=== PATIENT | male | born 1995 | race Caucasian/White ===

== ENCOUNTER 2018-07-09 11:17 | Emergency (ER) | payer MEDICARE ==
[2018-07-09 11:24] VITALS: BP 128/77
--- NOTE | 2018-07-09 11:33 | ER Document Report ---
ED Medical Screen (RME) - General Chief Complaint: Abdominal Pain Stated Complaint: ABDOMINAL PAIN Time Seen by Provider: 07/09/18 11:31 Mode of Arrival: Ambulatory Information source: Patient TRAVEL OUTSIDE OF THE [place] IN LAST 30 DAYS: No - HPI Patient complains to provider of: abd pain Onset: Yesterday - pt. is hearing impaired -- has haad epigastric pain for the past day with exacerbation this am - Related Data Allergies/Adverse Reactions: No Known Allergies Allergy (Verified 07/09/18 11:29) Past Medical History - Social History Chew tobacco use (# tins/day): No Frequency of alcohol use: None Drug Abuse: Marijuana Renal/ Medical History: Denies: Hx Peritoneal Dialysis Physical Exam - Vital signs Vitals: Temp Pulse Resp BP Pulse Ox 98.7 F 78 18 128/77 H 100 07/09/18 11:21 07/09/18 11:21 07/09/18 11:21 07/09/18 11:21 07/09/18 11:21 Course - Vital Signs Vital signs: Temp Pulse Resp BP Pulse Ox 98.7 F 78 18 128/77 H 100 07/09/18 11:21 07/09/18 11:21 07/09/18 11:21 07/09/18 11:21 07/09/18 11:21
[2018-07-09 11:59] LABS: ABSOLUTE LYMPHOCYTES (AUTO) 1.8 10^3/uL (0.5-4.7); ABSOLUTE MONOCYTES (AUTO) 0.6 10^3/uL (0.1-1.4); BASOPHILS % (AUTO) 0.5 % (0-2); EOSINOPHILS % (AUTO) 0.4 % (0-6); HEMATOCRIT 45.2 % (37.9-51.0); HEMOGLOBIN 15.4 g/dL (13.5-17.0); LYMPHOCYTES % (AUTO) 20.9 % (13-45); MEAN CORPUSCULAR HEMOGLOBIN 29.3 pg (27.0-33.4); MEAN CORPUSCULAR HGB CONC 34.1 g/dL (32.0-36.0); MEAN CORPUSCULAR VOLUME 86 fl (80-97); MONOCYTES % (AUTO) 7.5 % (3-13); PLATELET COUNT 226 10^3/uL (150-450); RED BLOOD COUNT 5.27 10^6/uL (4.35-5.55); RED CELL DISTRIBUTION WIDTH 14.1 % (11.5-14.0); SEGMENTED NEUTROPHILS % (AUTO) 70.7 % (42-78); TOTAL CELLS COUNTED % (AUTO) 100 %; WHITE BLOOD COUNT 8.4 10^3/uL (4.0-10.5)
--- NOTE | 2018-07-09 12:10 | RADIOLOGY REPORT (SQ) ---
EXAM DESCRIPTION: ACUTE ABDOMEN SERIES COMPLETED DATE/TIME: 07/09/2018 12:02 pm REASON FOR STUDY: abd pain COMPARISON: None. NUMBER OF VIEWS: Three views. TECHNIQUE: Frontal chest, supine abdomen and upright/decubitus abdomen radiographic images acquired. LIMITATIONS: None. FINDINGS: CHEST: Lungs clear of infiltrates. FREE AIR: None. No abnormal gas collections. BOWEL GAS PATTERN: Nonobstructive pattern. No dilated loops or air fluid levels. CALCIFICATIONS: No suspicious calcifications. HARDWARE: None in the abdomen. SOFT TISSUES: No gross mass or suggestion of organomegaly. BONES: No acute fracture. No worrisome bone lesions. OTHER: No other significant finding. IMPRESSION: NO RADIOGRAPHIC EVIDENCE FOR ACUTE ABDOMINAL DISEASE. TECHNICAL DOCUMENTATION: JOB ID: [id number] [employer]- All Rights Reserved Reading location - IP/workstation name: [email or web address]
[2018-07-09 12:25] LABS: ALANINE AMINOTRANSFERASE 24 U/L (21-72); ALBUMIN 4.9 g/dL (3.5-5.0); ALKALINE PHOSPHATASE 56 U/L (38-126); ANION GAP 16 (5-19); ASPARTATE AMINO TRANSFERASE 23 U/L (17-59); BILIRUBIN,DIRECT 0.3 mg/dL (0.0-0.4); BILIRUBIN,TOTAL 1.7 mg/dL (0.2-1.3); BLOOD UREA NITROGEN 15 mg/dL (7-20); CALCIUM 9.7 mg/dL (8.4-10.2); CARBON DIOXIDE 23 mmol/L (22-30); CHLORIDE 106 mmol/L (98-107); GLUCOSE 93 mg/dL (75-110); LIPASE 55.9 U/L (23-300); POTASSIUM 4.5 mmol/L (3.6-5.0); TOTAL PROTEIN 7.6 g/dL (6.3-8.2)
[2018-07-09] MEDS ORDERED: FENTANYL CITRATE INJ/PF 100 MCG/2 ML AMPUL IV ONE (12:39)
[2018-07-09] MEDS ORDERED: NORMAL SALINE 1000 ML 1,000 ML IV ONE (12:39)
[2018-07-09] MEDS ORDERED: ONDANSETRON HCL INJ/PF 4 MG/2 ML SDV IV ONE (12:39)
--- NOTE | 2018-07-09 12:41 | ER Document Report ---
ED GI/ - General Chief Complaint: Abdominal Pain Stated Complaint: ABDOMINAL PAIN Time Seen by Provider: 07/09/18 11:31 Mode of Arrival: Ambulatory Information source: Patient Notes: Patient presents with a 2 day history of epigastric abdominal pain has been off and on. Patient does report nausea but denies any vomiting or diarrhea. Patient denies any fever. Appetite has been normal. Patient states that pain symptoms occasionally will wake him out in a sweat. TRAVEL OUTSIDE OF THE [place] IN LAST 30 DAYS: No - HPI Patient complains to provider of: Abdominal pain Onset: Other - 2 days Timing/Duration: Waxing and waning Quality of pain: Sharp Pain Level: 5 Location: Epigastric Associated symptoms: Nausea. denies: Chest pain, Constipation, Diarrhea, Loss of appetite, Urinary hesitancy, Urinary frequency, Urinary retention, Vomiting Exacerbated by: Denies Relieved by: Denies Similar symptoms previously: No Recently seen / treated by doctor: No - Related Data Allergies/Adverse Reactions: No Known Allergies Allergy (Verified 07/09/18 11:29) Past Medical History - General Information source: Patient - Social History Smoking Status: Former Smoker Chew tobacco use (# tins/day): No Frequency of alcohol use: None Drug Abuse: Marijuana Occupation: Foodservice Family History: Reviewed & Not Pertinent Patient has suicidal ideation: No Patient has homicidal ideation: No - Medical History Medical History: Negative Renal/ Medical History: Denies: Hx Peritoneal Dialysis Past Surgical History: Reports: Other - Ear surgery Review of Systems - Review of Systems Constitutional: No symptoms reported. denies: Fever, Recent illness EENT: No symptoms reported Cardiovascular: No symptoms reported. denies: Chest pain Respiratory: No symptoms reported. denies: Cough, Short of breath Gastrointestinal: Abdominal pain, Nausea. denies: Diarrhea, Vomiting, Constipation, Poor appetite Genitourinary: No symptoms reported. denies: Dysuria, Flank pain Male Genitourinary: No symptoms reported Musculoskeletal: No symptoms reported. denies: Back pain Skin: No symptoms reported Hematologic/Lymphatic: No symptoms reported Neurological/Psychological: No symptoms reported Physical Exam - Vital signs Vitals: Temp Pulse Resp BP Pulse Ox 98.7 F 78 18 128/77 H 100 07/09/18 11:21 07/09/18 11:21 07/09/18 11:21 07/09/18 11:21 07/09/18 11:21 - General General appearance: Appears well, Alert In distress: None - HEENT Head: Normocephalic Eyes: Normal Conjunctiva: Normal Ears: Normal Nasal: Normal Mouth/Lips: Normal Mucous membranes: Normal Neck: Normal, Supple. No: Lymphadenopathy - Respiratory Respiratory status: No respiratory distress Chest status: Nontender Breath sounds: Normal. No: Rales, Rhonchi, Stridor, Wheezing Chest palpation: Normal - Cardiovascular Rhythm: Regular Heart sounds: S1 appreciated, S2 appreciated - Abdominal Inspection: Normal Distension: No distension Bowel sounds: Normal Tenderness: Tender - epig, suprapubic Organomegaly: No organomegaly - Back Back: Normal, Nontender. No: CVA tenderness - Extremities General upper extremity: Normal inspection, Normal ROM General lower extremity: Normal inspection, Normal ROM - Neurological Neuro grossly intact: Yes Cognition: Normal [place] Coma Scale Eye Opening: Spontaneous Fabrice Coma Scale Verbal: Oriented Fabrice Coma Scale Motor: Obeys Commands Fabrice Coma Scale Total: 15 - Psychological Associated symptoms: Normal affect, Normal mood - Skin Skin Temperature: Warm Skin Moisture: Dry Skin Color: Normal Course - Re-evaluation Re-evalutation: 07/09/18 14:43 Patient resting with eyes closed. Patient states that he has persistent abdominal pain 4 out of 5 scale at this time. Additional imaging ordered. 07/09/18 16:40 Patient vomiting, additional medications ordered. 07/09/18 18:38 Patient sleeping, arouses easily to voice. Discussed results of patient's diagnostic test with patient. Patient advised of finding of enlarged spleen on CT scan. Patient advised of worsening symptoms that he should return medially for. Patient encouraged to avoid any type of contact sports or activities that may risk getting struck on that side. Patient encouraged to follow-up with a GI doctor for further evaluation of upper abdominal tenderness. Patient without any tenderness to left upper quadrant or left flank area. Consulted with Dr. Espinoza regarding patient's diagnostic evaluation. No additional testing advised at this time. - Vital Signs Vital signs: Temp Pulse Resp BP Pulse Ox 98.7 F 78 18 128/77 H 100 07/09/18 11:21 07/09/18 11:21 07/09/18 11:21 07/09/18 11:21 07/09/18 11:21 - Laboratory Result Diagrams: 07/09/18 11:44 07/09/18 11:44 Laboratory results interpreted by me: 07/09/18 07/09/18 07/09/18 11:44 11:44 16:06 RDW 14.1 H Total Bilirubin 1.7 H Urine Urobilinogen 2.0 H 07/09/18 18:39 Labs- Entire Visit 07/09/18 07/09/18 07/09/18 11:44 11:44 16:06 WBC 8.4 RBC 5.27 Hgb 15.4 Hct 45.2 MCV 86 MCH 29.3 MCHC 34.1 RDW 14.1 H Plt Count 226 Seg Neutrophils % 70.7 Lymphocytes % 20.9 Monocytes % 7.5 Eosinophils % 0.4 Basophils % 0.5 Absolute Neutrophils 6.0 Absolute Lymphocytes 1.8 Absolute Monocytes 0.6 Absolute Eosinophils 0.0 Absolute Basophils 0.0 Sodium 145.0 Potassium 4.5 Chloride 106 Carbon Dioxide 23 Anion Gap 16 BUN 15 Creatinine 0.72 Est GFR ( Amer) > 60 Est GFR (Non-Af Amer) > 60 Glucose 93 Calcium 9.7 Total Bilirubin 1.7 H Direct Bilirubin 0.3 Neonat Total Bilirubin Not Reportable Neonat Direct Bilirubin Not Reportable Neonat Indirect Bili Not Reportable AST 23 ALT 24 Alkaline Phosphatase 56 Total Protein 7.6 Albumin 4.9 Lipase 55.9 Urine Color YELLOW Urine Appearance CLEAR Urine pH 6.0 Ur Specific [place] 1.021 Urine Protein NEGATIVE Urine Glucose (UA) NEGATIVE Urine Ketones NEGATIVE Urine Blood NEGATIVE Urine Nitrite NEGATIVE Urine Bilirubin NEGATIVE Urine Urobilinogen 2.0 H Ur Leukocyte Esterase NEGATIVE Urine WBC (Auto) 0 Urine RBC (Auto) 1 Urine Mucus (Auto) RARE Urine Ascorbic Acid NEGATIVE - Diagnostic Test Radiology reviewed: Image reviewed, Reports reviewed Discharge - Discharge Clinical Impression: Enlargement, spleen Abdominal pain Qualifiers: Abdominal location: epigastric Qualified Code(s): R10.13 - Epigastric pain Condition: Stable Disposition: HOME, SELF-CARE Instructions: Abdominal Pain ([facility]), Antinausea Medication ([facility]) Additional Instructions: Return immediately for any new or worsening symptoms Followup with your primary care provider, call tomorrow to make a followup appointment Your CT scan showed that your spleen is enlarged. It is important that you avoid any contact sports or activities that may risk any type of trauma or blow to your left side, left upper quadrant of your abdomen, or left side of your back. If you start to have any pain in this area, feeling lightheaded, dizzy or have any worsening symptoms it is important that you return immediately or call 911 if symptoms are severe. Follow-up with a plywood stock grader for further evaluation of your upper abdominal tenderness. It is possible that he may need an endoscopy procedure to further evaluate your upper abdominal tenderness symptoms. Eat a bland diet and avoid spicy foods or citrus that may be irritating to her stomach. Prescriptions: Omeprazole Magnesium [Prilosec Otc] 20 mg PO DAILY #15 tablet. Ondansetron HCl [Zofran 4 mg Tablet] 1 - 2 tab PO Q6 PRN #15 tablet PRN Reason: Sucralfate [Carafate 1 gm Tablet] 1 gm PO ACHS #40 tablet Forms: Return to Work Referrals: LETICIA VILLALBA [Primary Care Provider] - Follow up as needed KATIE LIEBERMAN MD [ACTIVE STAFF] - Follow up as needed RICKY AKBAR MD [ACTIVE STAFF] - Follow up as needed [facility] [Provider Group] - Follow up as needed
--- NOTE | 2018-07-09 13:41 | RADIOLOGY REPORT (SQ) ---
EXAM DESCRIPTION: U/S ABDOMEN LIMITED W/O DOP COMPLETED DATE/TIME: 07/09/2018 1:28 pm REASON FOR STUDY: abd pain COMPARISON: None. TECHNIQUE: Dynamic and static grayscale images acquired of the abdomen and recorded on PACS. Additio nal selected color Doppler and spectral images recorded. LIMITATIONS: None. FINDINGS: PANCREAS: No masses. Visualized pancreatic duct normal caliber. LIVER: No masses. Echotexture normal. LIVER VASCULATURE: Normal directional flow of the main portal vein and hepatic veins. GALLBLADDER: No stones. Normal wall thickness. No pericholecystic fluid. ULTRASOUND-DETECTED TURNER'S SIGN: Negative. INTRAHEPATIC DUCTS AND COMMON DUCT: CBD and intrahepatic ducts normal caliber. No filling defects. INFERIOR VENA CAVA: Normal flow. AORTA: No aneurysm. RIGHT KIDNEY: Normal size. Normal echogenicity. No solid or suspicious masses. No hydronephrosis. No calcifications. PERITONEAL AND RIGHT PLEURAL SPACE: No ascites or effusions. OTHER: No other significant findings. IMPRESSION: NORMAL RIGHT UPPER QUADRANT ULTRASOUND. TECHNICAL DOCUMENTATION: JOB ID: [id number] [employer]- All Rights Reserved Reading location - IP/workstation name: [email or web address]
[2018-07-09] MEDS ORDERED: NORMAL SALINE 1000 ML 1,000 ML IV PRN (14:43)
[2018-07-09] MEDS ORDERED: MORPHINE SULFATE 10 MG/ML INJ IV ONE (16:14)
[2018-07-09] MEDS ORDERED: PROCHLORPERAZINE EDISYLATE INJ 10 MG/2 ML VIAL IV ONE (16:40)
[2018-07-09 17:02] LABS: APPEARANCE,URINE CLEAR; BILIRUBIN,URINE NEGATIVE (NEGATIVE); COLOR,URINE YELLOW; GLUCOSE, URINE NEGATIVE (NEGATIVE); KETONES,URINE NEGATIVE (NEGATIVE); LEUKOCYTE ESTERASE,URINE NEGATIVE (NEGATIVE); NITRITE,URINE NEGATIVE (NEGATIVE); PROTEIN,URINE NEGATIVE (NEGATIVE); URINE SPECIFIC GRAVITY 1.021
--- NOTE | 2018-07-09 18:02 | RADIOLOGY REPORT (SQ) ---
EXAM DESCRIPTION: CT ABD/PELVIS WITH IV ORAL COMPLETED DATE/TIME: 07/09/2018 5:39 pm REASON FOR STUDY: epig, periumbilical, suprapubic pain COMPARISON: Right upper quadrant ultrasound 07/09/2018, abdominal series 07/09/2018. TECHNIQUE: CT scan of the abdomen and pelvis performed using helical scanning technique with dynamic intravenous contrast injection and with oral contrast. Images reviewed with lung, soft tissue, and b one windows. Reconstructed coronal and sagittal MPR images reviewed. Delayed images for evaluation of the urinary system also acquired. All images stored on PACS. All CT scanners at this facility use dose modulation, iterative reconstruction, and/or weight based d osing when appropriate to reduce radiation dose to as low as reasonably achievable (ALARA). [facility]: Dose Right [facility]: CareDose [facility]: Dose Right [facility]: Teradose 4D [facility]: [employer] CONTRAST TYPE AND DOSE: contrast/concentration: Isovue 350.00 mg/ml; Total Contrast Delivered: 83.0 ml; Total Saline Delivered: 69.0 ml RENAL FUNCTION: None required. The patient is less than 50 years old. RADIATION DOSE: CT Rad equipment meets quality standard of care and radiation dose reduction techniq ues were employed. CTDIvol: 5.7 - 7.0 mGy. DLP: 727 mGy-cm.. LIMITATIONS: None. FINDINGS: LOWER CHEST: No consolidation or pleural effusion. LIVER: Normal size. No masses. No dilated ducts. SPLEEN: Mildly enlarged measuring 13.7 cm in craniocaudal dimension. PANCREAS: No significant calcifications. No adjacent inflammation or peripancreatic fluid collections . Pancreatic duct not dilated. GALLBLADDER: No identified stones by CT criteria. No inflammatory changes to suggest cholecystitis. ADRENAL GLANDS: No significant masses or asymmetry. 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 No solid masses. No signi ficant calcifications. No hydronephrosis or hydroureter. LEFT KIDNEY AND URETER: No solid masses. No significant calcifications. No hydronephrosis or hydr oureter. AORTA AND VESSELS: No abdominal aortic aneurysm. RETROPERITONEUM: No retroperitoneal adenopathy, hemorrhage or masses. BOWEL AND PERITONEAL CAVITY: No dilated bowel loops or inflammatory changes. No free fluid or free ai r. The oral contrast has reached the ascending colon. APPENDIX: Normal. PELVIS: No mass. No free fluid. Normal bladder. ABDOMINAL WALL: No hernias. BONES: No acute findings. IMPRESSION: Mild splenomegaly. Otherwise, no acute findings. TECHNICAL DOCUMENTATION: JOB ID: [id number] [place]- Quality ID # [id number]: Final reports with documentation of one or more dose reduction techniques (e.g., Au tomated exposure control, adjustment of the mA and/or kV according to patient size, use of iterative reconstruction technique) 2010 [employer]- All Rights Reserved Reading location - IP/workstation name: [email or web address]
== END 2018-07-09 19:05 | disposition home or self-care (01) ==
LOC: ER 11:17
DX: R16.1 Splenomegaly, not elsewhere classified (principal); R10.13 Epigastric pain; R11.0 Nausea; F12.10 Cannabis abuse, uncomplicated; Z87.891 Personal history of nicotine dependence
CPT/HCPCS: 99284; 96361; 96374; 96375; 36415; 83690; 85025; 80053; 81001; 74022; 76705; 74177; J3010; J2270; J0780; J2405; J7030

== ENCOUNTER 2018-11-29 17:03 | Emergency (ER) | payer MEDICARE ==
[2018-11-29] MEDS ORDERED: ONDANSETRON 4 MG TAB.RAPDIS PO ONE (18:56)
--- NOTE | 2018-11-29 19:06 | ER Document Report ---
ED Medical Screen (RME) - General Chief Complaint: Nausea/Vomiting Stated Complaint: VOMITING Time Seen by Provider: 11/29/18 18:55 Notes: Patient is deaf but reads lips. He is complaining of pain in the epigastric region of the his abdomen for 5 days. The pain is mostly constant. It is worsened by eating and he cannot keep anything down when he does eat. Has had diarrhea as well. Feeling dizzy. No fever. Has not had any abdominal manzano rgeries. TRAVEL OUTSIDE OF THE [place] IN LAST 30 DAYS: No - Related Data Allergies/Adverse Reactions: No Known Allergies Allergy (Verified 07/09/18 11:29) Past Medical History Renal/ Medical History: Denies: Hx Peritoneal Dialysis Past Surgical History: Reports: Other - Ear surgery Physical Exam - Vital signs Vitals: Temp Pulse Resp BP Pulse Ox 99.0 F 69 16 119/71 100 11/29/18 17:10 11/29/18 17:10 11/29/18 17:10 11/29/18 17:10 11/29/18 17:10 Course - Vital Signs Vital signs: Temp Pulse Resp BP Pulse Ox 99.0 F 69 16 119/71 100 11/29/18 17:10 11/29/18 17:10 11/29/18 17:10 11/29/18 17:10 11/29/18 17:10 Doctor's Discharge - Discharge Referrals: LETICIA VILLALBA [Primary Care Provider] - Follow up as needed
[2018-11-29 19:36] LABS: ABSOLUTE BASOPHILS # (AUTO) 0.1 10^3/uL (0.0-0.2); ABSOLUTE EOSINOPHILS # (AUTO) 0.1 10^3/uL (0.0-0.6); ABSOLUTE LYMPHOCYTES (AUTO) 2.7 10^3/uL (0.5-4.7); ABSOLUTE MONOCYTES (AUTO) 0.8 10^3/uL (0.1-1.4); ABSOLUTE NEUT (AUTO) 5.3 10^3/uL (1.7-8.2); BASOPHILS % (AUTO) 0.6 % (0-2); EOSINOPHILS % (AUTO) 0.7 % (0-6); HEMATOCRIT 43.2 % (37.9-51.0); HEMOGLOBIN 14.7 g/dL (13.5-17.0); LYMPHOCYTES % (AUTO) 30.2 % (13-45); MEAN CORPUSCULAR HEMOGLOBIN 29.3 pg (27.0-33.4); MEAN CORPUSCULAR VOLUME 86 fl (80-97); MONOCYTES % (AUTO) 8.6 % (3-13); PLATELET COUNT 206 10^3/uL (150-450); RED BLOOD COUNT 5.02 10^6/uL (4.35-5.55); RED CELL DISTRIBUTION WIDTH 13.7 % (11.5-14.0); SEGMENTED NEUTROPHILS % (AUTO) 59.9 % (42-78); TOTAL CELLS COUNTED % (AUTO) 100 %; WHITE BLOOD COUNT 8.9 10^3/uL (4.0-10.5)
[2018-11-29 19:51] LABS: AMORPHOUS SEDIMENT,URINE TRACE /HPF; APPEARANCE,URINE CLOUDY; BILIRUBIN,URINE NEGATIVE (NEGATIVE); COLOR,URINE YELLOW; GLUCOSE, URINE NEGATIVE (NEGATIVE); KETONES,URINE NEGATIVE (NEGATIVE); LEUKOCYTE ESTERASE,URINE NEGATIVE (NEGATIVE); NITRITE,URINE NEGATIVE (NEGATIVE); PROTEIN,URINE NEGATIVE (NEGATIVE); URINE SPECIFIC GRAVITY 1.019
[2018-11-29 20:05] LABS: ALANINE AMINOTRANSFERASE 22 U/L (21-72); ALBUMIN 4.6 g/dL (3.5-5.0); ALKALINE PHOSPHATASE 59 U/L (38-126); ANION GAP 8 (5-19); ASPARTATE AMINO TRANSFERASE 28 U/L (17-59); BILIRUBIN,DIRECT 0.2 mg/dL (0.0-0.4); BILIRUBIN,TOTAL 2.4 mg/dL (0.2-1.3); BLOOD UREA NITROGEN 15 mg/dL (7-20); CALCIUM 9.5 mg/dL (8.4-10.2); CARBON DIOXIDE 27 mmol/L (22-30); CHLORIDE 107 mmol/L (98-107); GLUCOSE 88 mg/dL (75-110); LIPASE 90.8 U/L (23-300); POTASSIUM 3.7 mmol/L (3.6-5.0); SODIUM 142.2 mmol/L (137-145); TOTAL PROTEIN 7.1 g/dL (6.3-8.2)
[2018-11-29] MEDS ORDERED: DIPHENHYDRAMINE HCL 50 MG/ML VIAL IV ONE (20:42)
[2018-11-29] MEDS ORDERED: METOCLOPRAMIDE HCL INJ/PF 10 MG/2 ML SDV IV ONE (20:42)
[2018-11-29] MEDS: NORMAL SALINE 1000 ML 1,000 ML IV PRN ×2 (21:33→23:47)
--- NOTE | 2018-11-30 00:04 | RADIOLOGY REPORT (SQ) ---
EXAM DESCRIPTION: CT ABDOMEN PELVIS WITH IV CONTRAST COMPLETED DATE/TME: 11/29/2018 00:00 CLINICAL HISTORY: 23 years Male, abd pain Comparison:07/09/2018 Technique: IV and oral contrast. Coronal and sagittal reformat. This exam was performed according to our departmental dose-optimization program, which includes automated exposure control, adjustment of the mA and/or kV according to patient size and/or use of iterative reconstruction technique. [facility]: Dose Right [facility]: CareDose [facility]: Dose Right [facility]: Teradose 4D [facility]: Smart [email or web address] LIMITATIONS: None Findings: Splenomegaly index of 770. No ascites. No pneumoperitoneum. Normal appendix. No bowel obstruction. No hydronephrosis or hydroureter. No renal/ureteral stone. Inferior thorax, liver, gallbladder, pancreas, adrenals, renal system, gastrointestinal tract, pelvic organs, lymphatics, vasculature, and musculoskeleton appear otherwise unremarkable. IMPRESSION: Moderate splenic megaly.
[2018-11-30] MEDS ORDERED: ONDANSETRON ODT 4 MG TAB (6 TAB/ER DISP) PO PRN (00:41)
--- NOTE | 2018-11-30 00:43 | ER Document Report ---
ED General - General Chief Complaint: Nausea/Vomiting Stated Complaint: VOMITING Time Seen by Provider: 11/29/18 18:55 Mode of Arrival: Ambulatory Information source: Patient Notes: This is a 23-year-old deaf man who presents to the emergency room abdominal discomfort for the last few days associated with nausea, vomiting and diarrhea. Patient denies fever. Patient denies any blood in his stool. TRAVEL OUTSIDE OF THE [place] IN LAST 30 DAYS: No - HPI Onset: Last week Onset/Duration: Gradual Quality of pain: Dull Severity: Moderate Pain Level: 2 Associated symptoms: Diarrhea, Nausea, Vomiting. denies: Chest pain, Fever, Shortness of breath Exacerbated by: Denies Relieved by: Denies Similar symptoms previously: No Recently seen / treated by doctor: No - Related Data Allergies/Adverse Reactions: No Known Allergies Allergy (Verified 07/09/18 11:29) Past Medical History - General Information source: Patient - Social History Smoking Status: Never Smoker Cigarette use (# per day): No Chew tobacco use (# tins/day): No Frequency of alcohol use: None Drug Abuse: None Lives with: Family Family History: Reviewed & Not Pertinent Patient has suicidal ideation: No Patient has homicidal ideation: No - Medical History Medical History: Negative Renal/ Medical History: Denies: Hx Peritoneal Dialysis Past Surgical History: Reports: Other - Ear surgery: Cochlear implant Review of Systems - Review of Systems Constitutional: denies: Chills, Fever EENT: No symptoms reported Cardiovascular: No symptoms reported Respiratory: No symptoms reported Gastrointestinal: See HPI Genitourinary: No symptoms reported Male Genitourinary: No symptoms reported Musculoskeletal: No symptoms reported Skin: No symptoms reported Hematologic/Lymphatic: No symptoms reported Neurological/Psychological: No symptoms reported Physical Exam - Vital signs Vitals: Temp Pulse Resp BP Pulse Ox 99.0 F 69 16 119/71 100 11/29/18 17:10 11/29/18 17:10 11/29/18 17:10 11/29/18 17:10 11/29/18 17:10 Notes: Physical exam: GENERAL: Patient is alert and oriented x3, no acute distress HEAD: Atraumatic, normocephalic. EYES: Pupils equal round and reactive to light, extraocular movements intact, sclera anicteric, conjunctiva are normal. ENT: TMs normal, nares patent, oropharynx clear without exudates. Moist mucous membranes. NECK: Normal range of motion, supple without obvious mass or JVD. LUNGS: Breath sounds clear to auscultation bilaterally and equal. No wheezes rales or rhonchi. HEART: Regular rate and rhythm without murmurs, rubs or gallops. ABDOMEN: Soft, normoactive bowel sounds. Mild tenderness to the right upper and lower quadrants. No guarding, no rebound. No masses appreciated. EXTREMITIES: Normal range of motion, no pitting or edema. No clubbing or cyanosis. NEUROLOGICAL: Cranial nerves II through XII grossly intact. Normal speech, moving all extremities. PSYCH: Normal mood, normal affect. SKIN: Warm, Dry, normal turgor, no rashes or lesions noted. Bedside ultrasound: No gallstones, gallbladder wall thickening, pericholecystic fluid or common bile duct dilatation. There is no hydronephrosis. Course - Re-evaluation Re-evalutation: 11/30/18 00:40 CT of the abdomen shows no acute intra-abdominal process. There is mild splenomegaly. Did discuss these findings with the patient. His pain is actually on the right side of the abdomen so I do not think it has anything to do with this CT finding. I will give him some anti-emetics and I have advised him to advance his diet slowly. Otherwise I am going to give him a referral to a primary care doctor. 11/30/18 00:40 - Vital Signs Vital signs: Temp Pulse Resp BP Pulse Ox 97.6 F 59 L 16 107/56 L 100 11/30/18 01:11 11/30/18 01:11 11/30/18 01:11 11/30/18 01:11 11/30/18 01:11 - Laboratory Result Diagrams: 11/29/18 19:18 11/29/18 19:18 Laboratory results interpreted by me: 11/29/18 11/29/18 19:05 19:18 Total Bilirubin 2.4 H Urine Urobilinogen 4.0 H - Diagnostic Test Radiology reviewed: Image reviewed, Reports reviewed - CT of the abdomen shows splenomegaly with no acute intra-abdominal process Discharge - Discharge Clinical Impression: Abdominal pain, Vomiting with nausea Condition: Stable Disposition: HOME, SELF-CARE Additional Instructions: As we discussed, your labs were all baseline. The CT scan showed no acute intra-abdominal process. It did show some splenomegaly. This is a finding has been noted before in the past and we will need to continue to follow this. This is why it is important for you to have a primary care doctor. I put the number of a primary care doctor on the chart. Otherwise, drink plenty of fluids, advance her diet slowly. Return to the emergency room for worsening pain or any fever (temperature greate r than 100.5). Prescriptions: Promethazine HCl [Phenergan 25 mg Tablet] 25 mg PO Q6H PRN #15 tablet PRN Reason: Referrals: CLIFFORD RIVERA DO [NO LOCAL MD] - Follow up in 3-5 days
[2018-11-30 01:38] VITALS: BP 107/56
== END 2018-11-30 01:15 | disposition home or self-care (01) ==
LOC: ER 17:03
DX: R11.2 Nausea with vomiting, unspecified (principal); R19.7 Diarrhea, unspecified; R10.811 Right upper quadrant abdominal tenderness; R10.813 Right lower quadrant abdominal tenderness; R16.1 Splenomegaly, not elsewhere classified
CPT/HCPCS: 99284; 96361; 96374; 96375; 36415; 83690; 85025; 80053; 81001; 74177; J1200; A9270 ×2; J2765; J7030; S0119

== ENCOUNTER 2018-12-02 21:10 | Emergency (ER) | payer MEDICARE ==
[2018-12-03] MEDS ORDERED: MORPHINE SULFATE 10 MG/ML INJ IV ONE (00:55)
[2018-12-03 01:16] LABS: ALANINE AMINOTRANSFERASE 27 U/L (21-72); ALBUMIN 4.7 g/dL (3.5-5.0); ALKALINE PHOSPHATASE 56 U/L (38-126); ANION GAP 10 (5-19); ASPARTATE AMINO TRANSFERASE 28 U/L (17-59); BILIRUBIN,DIRECT 0.3 mg/dL (0.0-0.4); BLOOD UREA NITROGEN 18 mg/dL (7-20); CALCIUM 9.7 mg/dL (8.4-10.2); CARBON DIOXIDE 27 mmol/L (22-30); CHLORIDE 103 mmol/L (98-107); GLUCOSE 84 mg/dL (75-110); POTASSIUM 3.8 mmol/L (3.6-5.0); SODIUM 140.4 mmol/L (137-145); TOTAL PROTEIN 7.2 g/dL (6.3-8.2)
[2018-12-03 01:18] LABS: ABSOLUTE EOSINOPHILS # (AUTO) 0.1 10^3/uL (0.0-0.6); ABSOLUTE LYMPHOCYTES (AUTO) 2.9 10^3/uL (0.5-4.7); ABSOLUTE MONOCYTES (AUTO) 0.8 10^3/uL (0.1-1.4); ABSOLUTE NEUT (AUTO) 5.9 10^3/uL (1.7-8.2); BASOPHILS % (AUTO) 0.5 % (0-2); EOSINOPHILS % (AUTO) 0.9 % (0-6); HEMATOCRIT 43.5 % (37.9-51.0); LYMPHOCYTES % (AUTO) 30.1 % (13-45); MEAN CORPUSCULAR HEMOGLOBIN 29.5 pg (27.0-33.4); MEAN CORPUSCULAR HGB CONC 34.4 g/dL (32.0-36.0); MEAN CORPUSCULAR VOLUME 86 fl (80-97); PLATELET COUNT 225 10^3/uL (150-450); RED BLOOD COUNT 5.07 10^6/uL (4.35-5.55); RED CELL DISTRIBUTION WIDTH 13.9 % (11.5-14.0); SEGMENTED NEUTROPHILS % (AUTO) 60.5 % (42-78); TOTAL CELLS COUNTED % (AUTO) 100 %; WHITE BLOOD COUNT 9.8 10^3/uL (4.0-10.5)
[2018-12-03 01:21] LABS: INTERNATIONAL RATION (INR) 1.12
[2018-12-03 01:22] LABS: PARTIAL THROMBOPLASTIN TIME 34.6 SEC (23.5-35.8)
--- NOTE | 2018-12-03 01:40 | RADIOLOGY REPORT (SQ) ---
US ABDOMEN DOPPLER LIMITED HISTORY: Right upper quadrant pain. COMPARISON: CT scan from earlier the same day. TECHNIQUE: Grayscale and color Doppler imaging of the upper abdomen was performed. FINDINGS: The spleen measures 13.8 x 11.6 x 6.8 cm. There is a normal homogeneous echotexture. No focal masses are identified. There is normal color Doppler blood flow in the splenic hilum. IMPRESSION: Mild splenomegaly. No focal masses are identified.
[2018-12-03] MEDS ORDERED: SUCRALFATE SUSP 1 GM/10 ML UDCUP PO ONE (02:58)
--- NOTE | 2018-12-03 03:02 | ER Document Report ---
ED General - General Chief Complaint: Abdominal Pain Stated Complaint: ABDOMINAL PAIN Time Seen by Provider: 12/03/18 00:46 Notes: Patient is a 23-year-old male who presents with complaint of left upper quadrant pain. He said this pain for several weeks but says is gradually gotten worse. He is diagnosed with a large spleen but some months ago. His seen by his doctor. He says he has not followed up regularly about this. He was seen here at the beginning of November had a CT scan which showed a his spleen had large further. Exact cause of spleen enlargement is not known. He denies any trauma. No injuries. He is unsure if this is related to a previous viral illness. Today his pain was increasing and he passed out and therefore he came to the ER. He denies any fevers. No vomiting. Initially says that pain is made worse with pushing over the area on his abdomen. All history is obtained with the assistance of Saba, registered nurse, who is fluent in sign language being that the patient is deaf. TRAVEL OUTSIDE OF THE [place] IN LAST 30 DAYS: No - Related Data Allergies/Adverse Reactions: No Known Allergies Allergy (Verified 07/09/18 11:29) Past Medical History - Social History Smoking Status: Never Smoker Frequency of alcohol use: None Drug Abuse: None Family History: Reviewed & Not Pertinent Patient has suicidal ideation: No Patient has homicidal ideation: No Renal/ Medical History: Denies: Hx Peritoneal Dialysis Past Surgical History: Reports: Other - Ear surgery: Cochlear implant Review of Systems - Review of Systems Notes: My Normal Review Basic REVIEW OF SYSTEMS: CONSTITUTIONAL : Denies fever, chills, or sweats. Denies recent illness. CARDIOVASCULAR: Denies chest pain. RESPIRATORY: Denies cough, cold, or chest congestion. Denies shortness of breath, difficulty breathing, or wheezing. GASTROINTESTINAL: Pain in left upper quadrant of abdomen. MUSCULOSKELETAL: Denies neck or back pain or joint pain or swelling. SKIN: Denies rash or skin lesions. NEUROLOGICAL: Denies altered mental status or loss of consciousness. Denies headache. Denies weakness or paralysis or loss of use of either side. Denies problems with gait or speech. Denies sensory or motor loss. ALL OTHER SYSTEMS REVIEWED AND NEGATIVE. Physical Exam - Vital signs Vitals: Temp Resp BP Pulse Ox 98.0 F 20 126/82 H 100 12/02/18 21:38 01/04/19 21:38 12/02/18 21:38 12/02/18 21:38 - Notes Notes: General Appearance: Well nourished, alert, cooperative, no acute distress, mild obvious discomfort. Well-appearing. Vitals: reviewed, See vital signs table. Head: no swelling or tenderness to the head Eyes: PERRL, EOMI, Conjuctiva clear Mouth: No decreasd moisture Lungs: No wheezing, No rales, No rhonci, No accessory muscle use, good air exchange bilaterally. Heart: Normal rate, Regular rythm, No murmur, no rub Abdomen: Normal BS, soft, No rigidity, some pain to palpation of the epigastric and left upper quadrant of the abdomen. Remainder of abdomen is completely nontender. Abdomen is very soft. There is no peritoneal signs. No bruising along the flank. Skin: warm, dry, appropriate color, no rash Neuro: speech clear, oriented x 3, normal affect, responds appropriately to questions. Course - Re-evaluation Re-evalutation: 12/03/18 08:48 Obtain blood work and ultrasound the patient's spleen. Ultrasound shows mildly enlarged spleen with good Doppler flow. Blood work did not show any concerning findings. Patient's vital signs are completely stable and clinically looks very well. Because of his worsening symptoms I did call and speak with her surgeon, Dr. Villalta. He says that the patient call the office Wednesday morning and will follow him up and determine whether or not he is a skin candidate for splenectomy and whether or not they feel that this pain really is related to the spleen. After I went back and spoke to the patient about this plan he is agreeable to it but now he also mentions to me that his pain seems to be worse with eating. Informed him that this could represent him actually having pain from gastritis supposed to the enlarged spleen. I will placed him on Carafate and Prilosec. I informed him that he should still follow-up with the surgery clinic for evaluation of his spleen as well. I encouraged him return to ER if he has vomiting, worsening pain, fevers, or if he feels unwell. Patient agrees with plan and will be discharged home. Dictation of this chart was performed using voice recognition software; therefore, there may be some unintended grammatical errors. - Vital Signs Vital signs: Temp Pulse Resp BP Pulse Ox 98.5 F 15 126/93 H 100 12/03/18 03:09 12/03/18 03:09 12/03/18 03:09 12/03/18 03:09 - Laboratory Result Diagrams: 12/03/18 00:25 12/03/18 00:25 Discharge - Discharge Clinical Impression: H/O splenomegaly Abdominal pain Qualifiers: Abdominal location: left upper quadrant Qualified Code(s): R10.12 - Left upper quadrant pain Condition: Good Disposition: HOME, SELF-CARE Additional Instructions: Your spleen is mildly enlarged on ultrasound. Your ultrasound shows that you have good blood flow to your spleen. Your blood work did not show any abnormalities. Your pain could be coming from your spleen but I suspect your pain could potentially also be coming from your stomach as you have pain that is worse with eating. Please avoid fatty foods, spicy foods, and fried foods. I prescribed 2 medications that will help decrease the amount of acid production in your stomach. Please eat a very bland diet for the next week. Eat things such as rice and bread. Please drink non-caffeinated liquids such as water. Avoid fruit juices. It is okay to drink milk. Please avoid [id number] pain medicine such as Advil, Aleve, Motrin, ibuprofen. It is okay to take Tylenol. Please follow-up with his surgeon in regards to reevaluation for your spleen. [facility] and he wants to to call the surgery office Wednesday to follow-up. Please inform the surgery office that the ER physician spoke with Dr. Villalta and wants to see you in the office on Wednesday for reevaluation. Please return to ER immediately if you have sudden increase in pain, fevers, vomiting, or feel unwell. Prescriptions: Omeprazole Magnesium [Prilosec Otc] 20 mg PO DAILY #15 tablet. Sucralfate [Carafate Susp 1 Gm/10 Ml Udcup] 1 gm PO ACHS 10 Days udc Referrals: TRANG VILLALTA MD [ACTIVE STAFF] - 12/05/18 (call office wednesday)
[2018-12-03 03:22] VITALS: BP 126/93
== END 2018-12-03 03:22 | disposition home or self-care (01) ==
LOC: ER 21:10
DX: R16.1 Splenomegaly, not elsewhere classified (principal); R10.12 Left upper quadrant pain
CPT/HCPCS: 99284; 96374; 36415; 85025; 85610; 85730; 80053; 76705; 93976; J2270

== ENCOUNTER 2019-02-16 08:52 | Day surgery (SDC) | payer MEDICARE ==
[2019-02-16] MEDS ORDERED: ONDANSETRON HCL INJ/PF 4 MG/2 ML SDV ONE (09:29)
[2019-02-16] MEDS ORDERED: DIPHENHYDRAMINE HCL 50 MG/ML VIAL ONE (09:29)
[2019-02-16] MEDS ORDERED: EPINEPHRINE INJ 1 MG/10 ML DISP.SYRIN ONE (09:30)
[2019-02-16] MEDS ORDERED: GLUCAGON,HUMAN RECOMB 1 MG INJ ONE (09:30)
[2019-02-16] MEDS ORDERED: NALOXONE HCL INJ/PF 0.4 MG/1 ML SDV ONE (09:30)
[2019-02-16] MEDS ORDERED: FLUMAZENIL INJ 0.5 MG/5 ML VIAL ONE (09:30)
[2019-02-16] MEDS: MIDAZOLAM 2 MG/2 ML INJ ONE ×5 (10:00→11:00)
[2019-02-16] MEDS: FENTANYL CITRATE INJ/PF 100 MCG/2 ML AMPUL ONE ×6 (10:02→10:50)
--- NOTE | 2019-02-16 11:32 | Discharge Summary ---
Discharge Summary (SDC) - Discharge Final Diagnosis: 1. Chronic abdominal pain 2. Mild gastritis 3. Rectosigmoid polyposis Date of Surgery: 02/16/19 Discharge Date: 02/16/19 Condition: Good Forms: Sedation D/C Instructions, Discharge POC-Surgical Service Treatment or Instructions: [facility] [address] [id number] POST ENDOSCOPY DISCHARGE INSTRUCTIONS 1. Diet: Start clear liquids that a regular diet as tolerated. 2. Resume all preoperative medications. All oral anticoagulants and aspirins can be resumed 24 hours after procedure. 3. If a polypectomy was performed some bleeding per rectum may occur. This should stop within 3 days. If not, please contact the office. 4. If you had a colonoscopy you may experience some bloating and delayed return of normal bowel function for several days, your regular bowel movement pattern should resume within a week. 5. Please contact [facility] at to make an appointment with Dr. Villalta for 1 to 3 weeks following procedure. 6. If you have any questions or concerns regarding your care,treatment plan or follow up, please contact our office. 7. Per clinical guidelines we recommend you undergo a repeat colonoscopy in 3-5 years pending final path report Referrals: TRANG VILLALTA MD [ACTIVE STAFF] - 03/02/19 1:45 pm Discharge Diet: As Tolerated Discharge Activity: Activity As Tolerated Home Care Assistance: None Needed Report the Following to Your Physician Immediately: Shortness of Breath, Increase in Pain, Fever over 101 Degrees
--- NOTE | 2019-02-16 11:42 | Operative Report ---
Operative Report DATE OF SURGERY: 02/16/19 PREOPERATIVE DIAGNOSIS: 1. Chronic abdominal pain. 2. Constipation. 3. Deaf POSTOPERATIVE DIAGNOSIS: Same with. 1. mild gastritis. 2. Rectosigmoid polyposis OPERATION: 1. Esophagogastroduodenoscopy. 2. Biopsy of the antrum. 3. Total colonoscopy to cecum. 4. Random right ascending colon biopsy. 5. Polypectomy x2 rectosigmoid junction SURGEON: TRANG VILLALTA ANESTHESIA: Moderate Sedation TISSUE REMOVED OR ALTERED: Mucosal biopsies and rectosigmoid polyps COMPLICATIONS: None ESTIMATED BLOOD LOSS: Scant INTRAOPERATIVE FINDINGS: See below PROCEDURE: Patient was taken to the preop holding area to the endoscopy suite where monitor ing devices were attached, hypopharynx anesthetized, and conscious sedation initiated. Surgical plan surgical timeout were conducted Of note because of the patient being deaf, there is a instructional design specialist in the room during the entire procedure. The flexible upper endoscope was easily advanced to the hypopharynx, down the esophagus through the stomach into the duodenum. This was an excellent study, with no complications. The first and second portion of the duodenum appeared normal. The scope was brought back to the pylorus which is grossly normal. The stomach was essentially unremarkable with no evidence of polyp tumor stricture bleeding or ulcers. There was mild distal gastritis and a random biopsy of the area did leading was minimal. The scope was retroflexed, and a good look at the gastric cardia visualized. No significant hiatal hernia. Scope was withdrawn through the GE junction. The Z line appeared grossly normal at approximately 2 cm from the incisor. No biopsies were taken. The remainder the esophagus was abnormal her graph the scope was withdrawn to the patient's oropharynx. He tolerated procedure well. At this point the patient was placed in the extreme left lateral position instrumentation set up for colonoscopy. Level of sedation was achieved to a reasonable degree of satisfaction with 8 mg of Versed and 200 mcg of fentanyl rectal exam was performed by Dr. Villalta with a lubricated index finger. The posterior surface of the prostate gland was slightly enlarged. No masses appreciated. Sphincter tone appropriate. The flexible pediatric colonoscope was advanced to the anorectal canal all the way to the cecum. This was a very good study on a reasonably well-prepped bowel. There was only a residual amount of green stool in the right colon which aspirated easily. Ileocecal valve, orifice of the appendix all visualized. As well as transillumination anterior abdominal We took a random biopsy of the ascending colon. This was performed with the cold forceps device. Bleeding was minimal. The scope was withdrawn through the rest of the colon where there was no pathology seen until we got to the rectosigmoid region approximately 20 cm from the anal verge. There was a cluster of very small slightly pedunculated raised polyps in the mucosa photographed into or selected for biopsy. This was performed with a cold forceps device. Bleeding was minimal. There is no evidence of tumor stricture bleeding. The sigmoid colon was slightly tortuous but nothing pathologic Scope was withdrawn the patient's anus. Tolerated procedure well Per surveillance guidelines, patient be an appropriate candidate for follow-up colonoscopy in 3-5 years pending results of pathology report and other evaluations.
[2019-02-16 12:26] VITALS: BP 122/72
== END 2019-02-16 12:20 | disposition home or self-care (01) ==
LOC: END 08:52
PROVIDERS: ATTEND Surgery
DX: K29.50 Unspecified chronic gastritis without bleeding (principal); D12.8 Benign neoplasm of rectum; R63.4 Abnormal weight loss; Z79.891 Long term (current) use of opiate analgesic; Z01.818 Encounter for other preprocedural examination; Z68.21 Body mass index [BMI] 21.0-21.9, adult
CPT/HCPCS: 43239; 45380; 88305 ×2; J2250; J3010; J0171; J1200; J1610; J2310; J2405; J3490